=== PATIENT | male | born 1970 | race Two or more races ===

== ENCOUNTER 2025-03-17 08:14 | Emergency (ER) | payer SELFPAY ==
[2025-03-17] VITALS (7 sets, daily range): BP systolic 127–184; BP diastolic 73–101; PULSE 53–82; RESP 17–21; TEMP 36.4–36.8; O2SAT 93–99; BMI 28.2
--- NOTE | 2025-03-17 08:38 | XR_ITS ---
EXAMINATION: AP chest single view TECHNIQUE: AP upright portable chest single view Date and time: March 17, 2025, 0921 hours INDICATIONS: Chest pain today. FINDINGS: Normal heart size Lungs are clear. Healed fracture left clavicle IMPRESSION: No active disease
--- NOTE | 2025-03-17 08:38 | EKG_ITS ---
[facility] Test Date: 2025-03-17 Pat Name: CLEM FOSTER Department: Room: - Gender: Male Certified Rehabilitation Counselor: : 1970 Requested By: Earl Giordano (DENIA) Order Number: [id number] Reading MD: Earl Giordano (DATA EXAMINATION CLERK) Measurements Intervals [place] Rate: 48 P: 40 MS: 161 QRS: 24 QRSD: 94 T: 49 QT: 449 QTc: 402 Interpretive Statements SINUS BRADYCARDIA No previous ECG available for comparison /store/S0/[id number].pdf
--- NOTE | 2025-03-17 09:10 | PC.NURSE ---
PATIENT CAME IN WITH C/O MID UPPER RT ABD SINCE THIS AM WITH NAUSEA. DENIES FEVER, ALCOHOL INTAKE. HX HTN/DM/HIGH CHOLESTEROL. BEDSIDE BS 181. PT HAD MILD PAIN UPON PALPATION TO ABDOMEN. NO DISTRESS NOTED. LABS OBTAIN VIA IV INSERTION. PT TOLERATED WELL
--- NOTE | 2025-03-17 09:13 | EKG_ITS ---
[facility] Test Date: 2025-03-17 Pat Name: CLEM FOSTER Department: Room: - Gender: Male Financial Services Officer: : 1970 Requested By: Callie Villarreal Order Number: [id number] Reading MD: Callie Villarreal Measurements Intervals [place] Rate: 62 P: 50 AK: 160 QRS: 26 QRSD: 93 T: 32 QT: 434 QTc: 441 Interpretive Statements SINUS RHYTHM WITH OCCASIONAL SUPRAVENTRICULAR PREMATURE COMPLEXES Compared to ECG 03/17/2025 08:49:52 Sinus bradycardia no longer present /store/S0/[id number].pdf
[2025-03-17 09:24] LABS: Basophils # (Auto) 0.0 Thou/mm3 (0.0-0.2); Basophils % (Auto) 0 % (0-2.5); Eosinophils # (Auto) 0.1 Thou/mm3 (0.0-0.5); Eosinophils % (Auto) 1 % (0-10); Hematocrit 44.5 % (41.0-53.0); Hemoglobin 14.3 g/dL (13.5-16.0); Immature Granulocytes Auto 0.07 Thou/mm3 (0.00-0.00); Lymphocytes # (Auto) 2.1 Thou/mm3 (1.0-4.8); Lymphocytes % (Auto) 19 % (10-50); Mean Corpuscular HGB Conc 32.1 g/dl (31.0-37.0); Mean Corpuscular Hemoglobin 29.6 pg (25.0-35.0); Mean Corpuscular Volume 92 fL (80-100); Monocytes # (Auto) 0.8 Thou/mm3 (0.0-0.8); Monocytes % (Auto) 7 % (0-12); Neutrophils # (Auto) 8.3 Thou/mm3 (1.8-7.7); Neutrophils % (Auto) 73 % (37-80); Nucleated Red Blood Cell # 0.00 Thou/mm3 (0.00-0.00); Nucleated Red Blood Cell % 0 /100 WBC (0); Platelet Count 242 Thou/mm3 (140-440); RDW Standard Deviation 46.4 fL (35.1-43.9); Red Blood Count 4.83 Miln/mm3 (4.50-5.90); White Blood Count 11.3 Thou/mm3 (3.8-10.6)
[2025-03-17] MEDS: FAMOTIDINE 20 MG TABLET 40 MG PO (09:32)
[2025-03-17] MEDS: LIDOCAINE VISCOUS 2% 15 ML UDC PO (09:33)
[2025-03-17] MEDS: MG HYD/AL HYD/SIME (Maalox Reg) SUSP 30 ML UDC PO (09:33)
[2025-03-17 09:38] LABS: INR 1.0 (0.9-1.3); Partial Thromboplastin Time 29.7 Seconds (22.0-36.0); Prothrombin Time 10.4 Seconds (9.0-12.2)
[2025-03-17 09:39] LABS: Alanine Aminotransferase 21 U/L (10-49); Albumin, Serum 4.4 gm/dL (3.5-5.0); Albumin/Globulin Ratio 1.8 (1.2-2.2); Alkaline Phosphatase 134 U/L (46-116); Anion Gap 9 (7-16); Aspartate Amino Transferase 16 U/L (0-34); BUN/Creatinine Ratio 26 Ratio (12-20); Bilirubin,Total 0.4 mg/dL (0.3-1.2); Blood Urea Nitrogen 23 mg/dL (9-23); Calcium 8.9 mg/dL (8.3-10.6); Calcium (Corrected) 8.9 mg/dL (8.5-10.1); Carbon Dioxide 27.7 mMol/L (20.0-31.0); Chloride 106 mMol/L (98-107); Creatinine (Component) 0.9 mg/dL (0.6-1.3); Estimated Creatinine Clearance 90.8 mL/min (>60); Globulin 2.4 gm/dL (2.3-3.5); Glucose 183 mg/dL (74-106); Lipase 32 U/L (12-53); Magnesium 2.1 mg/dL (1.6-2.6); Osmolality,Calculated 293 (275-295); Potassium 3.8 mMol/L (3.4-5.1); Sodium 143 mMol/L (136-145); Total Protein 6.8 gm/dL (5.7-8.2); Troponin I < 0.020 ng/mL (0.0-0.045); eGFR > 60 See Note
[2025-03-17 09:44] LABS: Collection Type, Urine Clean Catch; Squamous Epithelial Cell,Urine 0 /hpf (0-5)
[2025-03-17 09:48] LABS: B-Type Natriuretic Peptide 20 pg/mL (0-100)
[2025-03-17 09:58] LABS: Amphetamine/Methamp Scrn,U Negative (Negative); Barbiturate Screen,Urine Negative (Negative); Benzodiazepines Screen,Urine Negative (Negative); Benzoylecgonine Screen, Ur Negative (Negative); Fentanyl Screen,Urine Negative (Negative); Opiate Screen,Urine Negative (Negative); THC Screen,Urine Negative (Negative)
[2025-03-17 10:00] LABS: Bilirubin,Urine Negative (Negative); Blood,Urine Negative (Negative); Clarity,Urine Clear (Clear/Hazy); Color,Urine Lt-Yellow (Lt Yel-Yel); Culture Indicated,Urine Not Indicated; Glucose, Urine 4+ (Negative); Ketones,Urine Negative (Negative); Leukocyte Esterase,Urine Negative (Negative); Nitrite,Urine Negative (Negative); PH,Urine 6.0 (5.0-7.0); Protein,Urine Negative (Neg - Trace); RBC,Urine 1 /hpf (0-3); Specific Gravity,Urine 1.037 (1.001-1.035); Urobilinogen,Urine Negative mg/dL (0.0-1.0); WBC,Urine < 1 /hpf (0-5)
[2025-03-17] MEDS: NITROGLYCERIN 0.4 MG SUBL BTL #25 SL ×3 (10:59→11:22)
--- NOTE | 2025-03-17 11:47 | PD.EDABDPN ---
ED Abdominal Pain RME/HPI General Chief Complaint: Abdominal Pain Stated complaint: ABD PAIN Time seen by provider: 03/17/25 08:57 Arrival date/time: 03/17/25 08:14 Limitations: no limitations RME / HPI RME / HPI narrative: 54-year-old male presenting with burning epigastric and chest pain that began around 06:00, initially rated at 10/10 and currently 8/10 in severity, accompanied by nausea, a single episode of vomiting, and diaphoresis. Past medical history includes hypertension, diabetes mellitus, and hyperlipidemia. Patient denies other acute symptoms at this time. Related Data Previous Rx's ?Medication ?Instructions ?Recorded famotidine 40 mg tablet 40 mg PO BID PRN stomach upset #20 03/17/25 tabs Allergies Allergy/AdvReac Type Severity Reaction Status Date / Time No Known Allergies Allergy Verified 03/17/25 08:20 Review of Systems Review of Systems Systems Reviewed: All systems reviewed, normal except as documented Past Medical History Past Medical History CARDIAC: Positive Hypercholesterolemia and Hypertension ENDOCRINE: Positive Diabetes Mellitus Type 2 Social History SMOKING STATUS: Never smoker ED Exam Narrative Physical exam: General: Lying in bed, mildly uncomfortable initial exam. Eyes: Appear normal with no scleral icterus. HENT: Head and throat exam normal. Neck: Atraumatic, supple. Cardiac: Regular rate and rhythm, no murmurs. Respiratory: Clear to auscultation bilaterally, no respiratory distress. Abdomen: Abdomen soft, mild tender to epigastrium, nondistended; no rebound or guarding. MS: Extremities atraumatic. No edema, no calf tenderness to palpation. Skin: Warm, dry, intact. Neurologic: No altered mental status, speech is fluent. General Limitations: Present no limitations Course Course Course Narrative: 1245h: Checked on patient, he is feeling improved at this time. Notes that the pain has diminished with GI cocktail. Believe less likely cardiac, more likely GI origin of pain. Have discussed bland diet with patient's as well as outpatient follow-up with PCP for outpatient stress test arrangements. Tor return if worse. Stable for discharge home at this time. Quality Measures none Orders Category Date Time Status EKG (ED ONLY) *Do not use* NOW Care 03/17/25 08:38 Completed EKG (ED ONLY) *Do not use* NOW Care 03/17/25 09:13 Completed EKG (ED Only) Stat Exams 03/17/25 08:38 Draft EKG (ED Only) Stat Exams 03/17/25 09:13 Ordered XR chest 1V portable Stat Exams 03/17/25 08:38 Completed B-Type Natriuretic Peptide Stat Lab 03/17/25 09:08 Completed CBC Stat Lab 03/17/25 09:08 Completed Comprehensive Metabolic Panel Stat Lab 03/17/25 09:08 Completed Drug Screen,Urine Stat Lab 03/17/25 09:38 Completed Lipase Stat Lab 03/17/25 09:08 Completed Magnesium Stat Lab 03/17/25 09:08 Completed Partial Thromboplastin Time Stat Lab 03/17/25 09:08 Completed Prothrombin Time with INR Stat Lab 03/17/25 09:08 Completed Troponin I Stat Lab 03/17/25 09:08 Completed Troponin I Stat Lab 03/17/25 11:11 Completed Urinalysis, C/S if Indicated Stat Lab 03/17/25 09:34 Completed Famotidine [Pepcid] Med 03/17/25 09:23 Discontinued 40 mg PO X1 ONE Lidocaine 2% Viscous [Xylocaine 2% Viscous] Med 03/17/25 09:23 Discontinued 15 ml PO X1 ONE Nitroglycerin [Nitrostat 1/150] Med 03/17/25 09:23 Discontinued 0.4 mg SL Q5MIN PRN mg Hyd/Al Hyd/Jey Susp [Maalox Susp] Med 03/17/25 09:23 Discontinued 30 ml PO X1 ONE Vital Signs Vital signs: Vital Signs Temperature 97.5 F 03/17/25 08:49 Pulse Rate 53 L 03/17/25 08:49 Respiratory Rate 17 03/17/25 08:49 Blood Pressure 153/83 H 03/17/25 08:49 Pulse Oximetry (%) 99 03/17/25 08:49 Oxygen Delivery Method Room Air 03/17/25 08:49 Pulse ox is 99% on room air which is adequate. Abdominal Pain MDM MDM Narrative MDM Narrative:: This 54-year-old male presented with epigastric/chest pain of burning quality, onset at 06:00, initially severe (10/10), now 8/10, associated with nausea, vomiting, and sweating. History includes hypertension, diabetes, and hyperlipidemia. Physical exam showed mild discomfort but no acute findings. Serial troponins and two ECGs were reviewed and both were normal, with no significant acute abnormalities or ST-T wave changes. GI cocktail was administered with some improvement in symptoms. Differential diagnosis included acute coronary syndrome, aortic dissection, pulmonary embolism, pericarditis, peptic ulcer disease, and esophageal spasm. Given normal cardiac workup and clinical stability and improvement in symptoms, the patient was discharged home with strict return precautions and advised close outpatient follow-up for possible cardiac stress testing. Patient data External records reviewed:: None (No previous visits for review ) Clinical information provided by:: patient Social determinants that could affect healthcare access:: none Patient has the following chronic illnesses:: HTN, DM, HLD How is presenting disease/condition affected by chronic disease/condition?: exacerbated by Evaluation data The following diagnostics were reviewed and interpreted by me:: lab results, radiology exam(s) and EKG tracing(s) (EKG @ 09:20 AM, interpreted by me, normal sinus rhythm with occasional PVCs, rate 62, no STEMI. ) Lab and/or radiology exams considered but not ordered:: None Interpretation Summary: Ordering Physician: Pasquale MARTÍNEZ)Earl NP Date of Service: 03/17/25 Procedure(s): XR chest 1V portable Accession Number(s): [id number] cc: Pasquale (DENIA),Earl LOZA; Isaiah Garcia MD~ EXAMINATION: AP chest single view TECHNIQUE: AP upright portable chest single view Date and time: March 17, 2025, 0921 hours INDICATIONS: Chest pain today. FINDINGS: Normal heart size Lungs are clear. Healed fracture left clavicle IMPRESSION: No active disease Dictated By: Isaiha Garcia MD Signed By: <Electronically signed by Isaiah Garcia MD in OV>03/17/25 0946 Medications / Prescriptions Medications or Prescriptions considered but not ordered:: None Medication administrations:: Medication Administration History Discontinued Medications Al Hydrox/Mg Hydrox/Simethicone (Mg Hyd/Al Hyd/Jey (Maalox Reg) Susp 30 Ml Udc) 30 ml PO X1 ONE Stop: 03/17/25 09:24 Last Admin: 03/17/25 09:33 Dose: 30 ml Documented By: LF Famotidine (Famotidine 20 Mg Tablet) 40 mg PO X1 ONE Stop: 03/17/25 09:24 Last Admin: 03/17/25 09:32 Dose: 40 mg Documented By: LF Lidocaine HCl (Lidocaine Viscous 2% 15 Ml Udc) 15 ml PO X1 ONE Stop: 03/17/25 09:24 Last Admin: 03/17/25 09:33 Dose: 15 ml Documented By: LETY Nitroglycerin (Nitroglycerin 0.4 Mg Subl Btl #25) 0.4 mg SL Q5MIN PRN PRN Reason: CHEST PAIN Last Admin: 03/17/25 11:22 Dose: 0.4 mg Documented By: Admin: 03/17/25 11:07 Dose: 0.4 mg Documented By: Admin: 03/17/25 10:59 Dose: 0.4 mg Documented By: LETY See above Consultations Consultation(s) initiated? (list below): No Diagnosis Differential diagnosis abdominal pain: abdominal pain, gastroenteritis and other (gastritis ) Most likely diagnosis given after review of the tests above:: Nonspecific chest pain Admission Indicated Admission indicated?: not indicated Admission Request Was there a request for admission?: No Disposition Plan Disposition Plan: Discharge Discharge Attestation Discharge Attestation: The patient and all family members were given an opportunity to ask questions and understood the discharge instructions. Discharge instructions specifically effects, indications for sooner follow up or return to the emergency department, and the expected course of current diagnosis. Patient condition: Stable Discharge Plan Plan Patient Disposition: HOME (Self Care) Patient condition on transfer: Stable Prescriptions/Referrals Prescriptions/Med Rec: New famotidine 40 mg tablet 40 mg PO BID PRN (Reason: stomach upset) Qty: 20 0RF Referrals: No Primary/Family,Physician [Primary Care Provider] - In 1 week Problem List Clinical Impression: Nonspecific chest pain Patient/Caregiver Discharge Instructions Education Materials: ED Diet, [place] (Adult), ED Chest Pain, Uncertain Cause Additional Instructions: Realice un seguimiento con callahan m?dico dentro de diana semana para diana evaluaci?n adicional, incluido un examen de esfuerzo card?aco. Algunos principios generales de [place] que pueden ayudarte son los principios de [place]: Agua: (beber suficiente agua fresca para mantenerse hidratado, priorizando el agua en lugar de refrescos, caf?, t?, jugos, etc.). [place] (descansar adecuadamente por la noche, acostarse unas horas antes de la medianoche y evitar las pantallas, la televisi?n y la m?jasmin yashira debby antes de acostarse, as? jamari las comidas pesadas debby antes de acostarse). Ejercicio: (ejercicio/caminatas diarias seg?n la tolerancia). Deysi solar: (exponer la piel al arie joseph 15-20 minutos aproximadamente, temprano por la ma?david y al atardecer, para obtener los beneficios de la vitamina D). Aire (ejercicios de respiraci?n profunda temprano por la ma?david al aire [place]). Nutricion: (consumir diana dieta a base de plantas, evitar las micky en general y los alimentos altamente procesados). Templanza (evitar el alcohol, las drogas il?citas, las bebidas con cafe?na, fumar, etc.). Anna en [place] (dedicar tiempo diariamente al estudio b?blico y la oraci?n: la contemplaci?n tiene beneficios para la [place]). Recursos adicionales que pueden ser ?tiles: [email or web address], consulte la secci?n de recursos y seminarios. Print Language: Moldovan Stand Alone Forms: Mattie Award Info., Patient Portal Info Letter
[2025-03-17 12:11] LABS: Troponin I < 0.020 ng/mL (0.0-0.045)
== END 2025-03-17 13:55 | disposition home or self-care (01) ==
PROVIDERS: Nurse Practitioner Primary Care; Emergency Provider Family Medicine
DX: R07.9 Chest pain, unspecified (principal); E11.9 Type 2 diabetes mellitus without complications; E78.5 Hyperlipidemia, unspecified; I10 Essential (primary) hypertension
CPT/HCPCS: 36415; 71045; 80053; 80307; 81001; 83690; 83735; 83880; 84484; 85025; 85610; 85730; 93005; 99283; J3490; A9270